=== PATIENT | male | born 1980 | race Caucasian/White ===

== ENCOUNTER → 2021-01-11 09:40 | Outpatient (BNVA) | payer OTHER, SELFPAY | PROVIDERS: Visit Provider Physician Assistant | DX: S93.401A Sprain of unspecified ligament of right ankle, initial encounter (principal); S63.501A Unspecified sprain of right wrist, initial encounter; W01.0XXA Fall on same level from slipping, tripping and stumbling without subsequent striking against object, initial encounter | CPT/HCPCS: 73110; 99203 ==

== ENCOUNTER → 2021-01-17 07:57 | Outpatient (BNVA) | payer OTHER, SELFPAY | PROVIDERS: Visit Provider Internal Medicine | DX: S63.501A Unspecified sprain of right wrist, initial encounter (principal); S93.401A Sprain of unspecified ligament of right ankle, initial encounter; X58.XXXA Exposure to other specified factors, initial encounter | CPT/HCPCS: 99213 ==

== ENCOUNTER → 2021-05-12 11:15 | Outpatient (BNVA) | payer OTHER, SELFPAY | PROVIDERS: Visit Provider Physician Assistant Medical | DX: S93.511A Sprain of interphalangeal joint of right great toe, initial encounter (principal); W11.XXXA Fall on and from ladder, initial encounter | CPT/HCPCS: 73630; 99203 ==

== ENCOUNTER → 2021-05-19 13:27 | Outpatient (BNVA) | payer OTHER, SELFPAY | PROVIDERS: Visit Provider Physician Assistant Medical | DX: S93.511A Sprain of interphalangeal joint of right great toe, initial encounter (principal); X58.XXXA Exposure to other specified factors, initial encounter | CPT/HCPCS: 99213 ==

== ENCOUNTER 2021-05-23 13:38 | Outpatient (REF) | payer BC, SELFPAY ==
--- NOTE | ~2021-05-23 | XR_ITS ---
EXAMINATION: XR CHEST CLINICAL INFORMATION: Cough. COMPARISON: Chest x-ray 09/12/2017 TECHNIQUE: 2 views of the chest were obtained. FINDINGS: No significant abnormality is noted involving the heart, lungs, mediastinum, bony thorax or soft tissues. There is a right Shunt catheter traversing the right anterior chest wall. XR/XR chest 2V IMPRESSION: Unremarkable chest examination. No change from the last exam.
== END 2021-05-23 13:39 | disposition home or self-care (01) ==
LOC: HO.HMGCX 13:38
PROVIDERS: Visit Provider Physician Assistant
DX: R05 Cough (principal); Z20.822 Contact with and (suspected) exposure to COVID-19
CPT/HCPCS: 71046; U0003; U0005

== ENCOUNTER 2021-07-01 06:27 | Outpatient (REF) | payer BC, SELFPAY ==
[2021-07-01 11:25] LABS: MANUAL DIFF FLAG NO
[2021-07-01 11:31] LABS: Appearance Urine CLEAR; Color Urine YELLOW; Glucose Urine UA NEG (NEG); Leukocyte Esterase Urine NEG (NEG); Nitrite Urine NEG (NEG); Specific Gravity - Urine 1.015 (1.005-1.025); Urine Blood NEG (NEG); Urine Ketones NEG (NEG); Urine Protein NEG (NEG-TRACE)
[2021-07-01 11:40] LABS: Basophils Percent Auto 0.4 % (0-2); Eosinophils Absolute Auto 0.2 X10*3/uL (0.0-0.4); Eosinophils Percent Auto 4.7 % (0-4); Hematocrit 36.5 % (42-52); Hemoglobin 11.9 g/dl (14.0-18.0); Imm Gran Abs Auto 0.01 X10*3/uL (0.00-0.03); Imm Gran Pct Auto 0.2 % (0.0-0.4); Lymphocytes Absolute Auto 1.4 X10*3/uL (1.2-4.9); Lymphocytes Percent Auto 27.6 % (20-40); Mean Corpuscular HGB Conc 32.6 g/dl (31.0-36.0); Mean Corpuscular Hemoglobin 29.2 pg (27.0-33.0); Mean Corpuscular Volume 89.7 fL (80-98); Mean Platelet Volume 9.9 fL (9.4-12.4); Monocytes Absolute Auto 0.4 X10*3/uL (0.1-1.2); Monocytes Percent Auto 6.8 % (2-11); Neutrophils Absolute Auto 3.1 X10*3/uL (2.0-8.3); Neutrophils Percent Auto 60.3 % (45-73); Platelet Count 352 X10*3/uL (160-400); Red Blood Count 4.07 X10*6/uL (4.60-5.80); Red Cell Distribution Width 13.6 % (11.0-16.0); White Blood Count 5.2 X10*3/uL (4.8-10.8)
[2021-07-01 12:02] LABS: Prostate Specific Antigen 0.66 ng/mL (<0.05-4.0)
[2021-07-01 12:07] LABS: Alanine Aminotransferase 14 U/L (0-40); Alkaline Phosphatase 61 U/L (39-117); Anion Gap 9 (12-20); Aspartate Amino Transferase 16 U/L (5-37); Bilirubin Total 0.4 mg/dL (0.0-1.0); Blood Urea Nitrogen 11 mg/dL (9-16); Calcium 8.6 mg/dL (8.4-10.2); Carbon Dioxide 24 mmol/L (22-29); Chloride 110 mmol/L (96-108); Cholesterol 176 mg/dL; Estimated Glomerular Filt Rate > 60; Glucose Fasting 97 mg/dL (60-99); HDL Cholesterol 46 mg/dL; LDL Cholesterol Calculated 118 mg/dl; Potassium 4.2 mmol/L (3.3-5.1); Sodium 139 mmol/L (135-145); Total Protein 6.6 g/dL (6.5-8.0); Triglycerides 64 mg/dL
== END 2021-07-01 06:28 | disposition home or self-care (01) ==
LOC: HO.HMGCLDS 06:27
PROVIDERS: PCP Internal Medicine; Visit Provider Internal Medicine
DX: Z00.01 Encounter for general adult medical examination with abnormal findings (principal); Z12.5 Encounter for screening for malignant neoplasm of prostate; J45.40 Moderate persistent asthma, uncomplicated; R35.0 Frequency of micturition; Z91.09 Other allergy status, other than to drugs and biological substances
CPT/HCPCS: 36415; 80053; 80061; 81003; 84153; 85025

== ENCOUNTER 2021-07-29 11:25 | Outpatient (REF) | payer BC, SELFPAY | END 2021-07-29 11:26 | disposition home or self-care (01) | LOC: HO.LNP 11:25 | PROVIDERS: Visit Provider Internal Medicine | DX: B35.3 Tinea pedis (principal); B35.1 Tinea unguium | CPT/HCPCS: 87101; 87107 ==

== ENCOUNTER 2021-09-24 10:35 | Outpatient (REF) | payer BC, SELFPAY ==
[2021-09-24 13:56] LABS: Alanine Aminotransferase 19 U/L (0-40); Albumin Level 4.3 g/dL (3.5-5.0); Alkaline Phosphatase 69 U/L (39-117); Aspartate Amino Transferase 14 U/L (5-37); Bilirubin Direct 0.2 mg/dL (0.0-0.5); Bilirubin Total 0.3 mg/dL (0.0-1.0); Total Protein 7.4 g/dL (6.5-8.0)
== END 2021-09-24 10:36 | disposition home or self-care (01) ==
LOC: HO.HMGCLDS 10:35
PROVIDERS: Visit Provider Internal Medicine
DX: B35.1 Tinea unguium (principal)
CPT/HCPCS: 36415; 80076

== ENCOUNTER 2021-11-21 06:47 | Outpatient (REF) | payer BC, SELFPAY ==
[2021-11-21 12:23] LABS: Alanine Aminotransferase 18 U/L (0-40); Albumin Level 4.2 g/dL (3.5-5.0); Alkaline Phosphatase 65 U/L (39-117); Aspartate Amino Transferase 16 U/L (5-37); Bilirubin Direct 0.2 mg/dL (0.0-0.5); Bilirubin Total 0.4 mg/dL (0.0-1.0)
== END 2021-11-21 06:48 | disposition home or self-care (01) ==
LOC: HO.HMGCLDS 06:47
PROVIDERS: Visit Provider Internal Medicine
DX: B35.3 Tinea pedis (principal)
CPT/HCPCS: 36415; 80076

== ENCOUNTER 2021-11-29 10:53 | Outpatient (REF) | payer BC, SELFPAY ==
[2021-11-29 13:36] LABS: Prostate Specific Antigen 0.58 ng/mL (<0.05-4.0)
== END 2021-11-29 10:54 | disposition home or self-care (01) ==
LOC: HO.LAB 10:53
PROVIDERS: PCP Internal Medicine
DX: Z12.5 Encounter for screening for malignant neoplasm of prostate (principal); R35.0 Frequency of micturition; R33.9 Retention of urine, unspecified
CPT/HCPCS: 36415; 51798; 84153

== ENCOUNTER 2022-01-26 14:02 | Outpatient (REF) | payer BC, SELFPAY ==
[2022-01-26 14:46] LABS: Influenza A PCR NEGATIVE (Negative); Influenza B PCR NEGATIVE (Negative); Resp Syncy Virus RNA Qual PCR NEGATIVE (Negative); SARS COV2 PCR INHOUSE NEGATIVE (Negative)
== END 2022-01-26 14:03 | disposition home or self-care (01) ==
LOC: HO.LNP 14:02
PROVIDERS: Family Medicine; Visit Provider Hospitalist
DX: Z20.822 Contact with and (suspected) exposure to COVID-19 (principal); R09.89 Other specified symptoms and signs involving the circulatory and respiratory systems
CPT/HCPCS: 0241U

== ENCOUNTER 2022-03-07 06:26 | Outpatient (REF) | payer BC, SELFPAY ==
[2022-03-07 11:42] LABS: MANUAL DIFF FLAG NO
[2022-03-07 12:00] LABS: Basophils Percent Auto 0.4 % (0-2); Eosinophils Absolute Auto 0.2 X10*3/uL (0.0-0.4); Eosinophils Percent Auto 2.4 % (0-4); Hematocrit 44.3 % (42.0-52.0); Hemoglobin 14.5 g/dl (14.0-18.0); Imm Gran Abs Auto 0.02 X10*3/uL (0.00-0.03); Imm Gran Pct Auto 0.3 % (0.0-0.4); Lymphocytes Absolute Auto 1.5 X10*3/uL (1.2-4.9); Mean Corpuscular HGB Conc 32.7 g/dl (31.0-36.0); Mean Corpuscular Hemoglobin 28.6 pg (27.0-33.0); Mean Corpuscular Volume 87.4 fL (80.0-98.0); Mean Platelet Volume 10.6 fL (9.4-12.4); Monocytes Absolute Auto 0.4 X10*3/uL (0.1-1.2); Monocytes Percent Auto 5.7 % (2-11); Neutrophils Absolute Auto 5.4 x10*3/uL (2.0-8.3); Neutrophils Percent Auto 71.2 % (45-73); Platelet Count 283 X10*3/uL (160-400); Red Blood Count 5.07 X10*6/uL (4.60-5.80); Red Cell Distribution Width 12.4 % (11.0-16.0); White Blood Count 7.6 X10*3/uL (4.8-10.8)
[2022-03-07 12:39] LABS: Alanine Aminotransferase 18 U/L (0-40); Albumin Level 4.1 g/dL (3.5-5.0); Alkaline Phosphatase 67 U/L (39-117); Anion Gap 13 (12-20); Aspartate Amino Transferase 13 U/L (5-37); Bilirubin Total 0.3 mg/dL (0.0-1.0); Blood Urea Nitrogen 19 mg/dL (9-16); Calcium 9.1 mg/dL (8.4-10.2); Carbon Dioxide 22 mmol/L (22-29); Chloride 111 mmol/L (96-108); Estimated Glomerular Filt Rate > 60; Glucose Random 128 mg/dL (60-115); Potassium 4.2 mmol/L (3.3-5.1); Sodium 142 mmol/L (135-145); Total Protein 6.8 g/dL (6.5-8.0)
[2022-03-09 04:11] LABS: LDL Cholesterol Direct 116 mg/dL (<100)
== END 2022-03-07 06:27 | disposition home or self-care (01) ==
LOC: HO.HMGCLDS 06:26
PROVIDERS: Visit Provider Internal Medicine
DX: B35.1 Tinea unguium (principal); F33.9 Major depressive disorder, recurrent, unspecified; J45.40 Moderate persistent asthma, uncomplicated; Z91.09 Other allergy status, other than to drugs and biological substances
CPT/HCPCS: 36415; 80053; 83721; 85025

== ENCOUNTER → 2022-03-09 08:35 | Outpatient (BNVA) | payer BC, SELFPAY | PROVIDERS: PCP Internal Medicine; Visit Provider Urology | DX: N39.43 Post-void dribbling (principal) | CPT/HCPCS: 51798 ==

== ENCOUNTER 2023-10-23 08:23 | Outpatient (AMB) | payer BC, SELFPAY ==
--- NOTE | 2023-10-23 08:25 | A.OFFPC_ITS ---
Vital Signs 3 10/23/23 08:30 Height 5 ft 7 in Weight 187 lb 3 oz BMI 29.3 BP 122/92 H Blood Pressure Location Lt brachial Position Sitting Pulse 91 Pulse Source Pulse Oximeter Pulse Oximetry (%) 96 Oxygen Delivery Method Room Air Intake Visit Reasons: Annual PE Allergies ENVIRONMENTAL Allergy (Mild, Uncoded 03/16/22 16:32) WHEEZING/HAYFEVER SYMPTOMS Medication List - Last Reconciled 10/23/23 by Bere Houston MD albuterol sulfate 90 mcg/actuation (ProAir HFA) 1 inh inhalation Q4-6H PRN Tobacco use date assessed: 10/23/23 Dental Screening Dental Screen Date: 10/23/23 Did you have a dental visit in the last 12 months?: Yes Did you have a dental problem in the last 6 months where you did not have access to dental care?: No Was dental information given to patient?: Patient has dentist HPI Annual PE 2 HPI0 Details Patient is a 43-year-old gentleman came in today for physical examination I see that his diastolic blood pressure continued to be elevated We talked about reducing salt intake, reducing caffeine, losing some weight and exercising regularly Patient says that he has started exercising. He is complaining of irritation at the tip of his penis for the past 2 weeks Patient says that he does not know if he has picked up something from public toilet On examination he has slight erythema at opening of urethra I have ordered STD labs for him I also see that he is depressed however he is not suicidal We will be booking appointment in 2 days as telemedicine visit and will discuss the labs and depression further Meanwhile our behavior health coordinator will reach out to patient He is overweight with BMI of 29.3. His asthma is stable he is no longer taking Symbicort [facility] Medical History Urinary retention Encounter for screening Family History Paternal Grandmother Diabetes Breast cancer Mother Hypertension Other Substance use disorder Social History Housing: House Patient Tobacco Use Status: Former Tobacco user (5 years ) Tobacco use type: Cigarette e-Cigarette/Vaping Use: Never Used service: No Current occupational status: employed Cognitive needs: No Hearing needs: No Vision needs: Yes Questionnaire PHQ-9 Over the last 2 weeks, how often have you been bothered by any of the following problems? 1. Little interest or pleasure in doing things: not at all 2. Feeling down, depressed, or hopeless: several days 3. Trouble falling or staying asleep, or sleeping too much: several days 4. Feeling tired or having little energy: several days 5. Poor appetite or overeating: several days 6. Feeling bad about yourself - or that you are a failure or have let yourself or your family down: several days 7. Trouble concentrating on things, such as reading the newspaper or watching television: not at all 8. Moving or speaking so slowly that other people could have noticed. Or the opposite - being so fidgety or restless that you have been moving around a lot more than usual: not at all 9. Thoughts that you would be better off or of hurting yourself in some way: several days Total score: 6 Depression Screening Interpretation: Negative Depression Screening Done: Yes 35080 - PHQ-9 Billing: Yes Source: Developed by Drs. Gold Lundberg, Ilene Dooley, Bashir Nelson and colleagues, with an educational lourdes from [employer]. Thrive Questionnaire Date Thrive assessed: 10/23/23 I am a: Patient What is your living situation today?: I have a steady place to live Within the past 12 months, did the food you bought not last and you didn't have the money to get more?: Never true Within the past 12 months, did you worry whether your food would run out before you got money to buy more?: Never true Do you have trouble paying for medicines?: No Do you have trouble getting transportation to medical appointments?: No Do you have trouble paying your heating and electricity bill?: No Do you have trouble taking care of your child, family member or friend?: No Do you have trouble with day-to-day activities such as bathing, preparing meals, shopping, managing finances, etc.?: No Are you currently unemployed and looking for a job?: No Are you interested in more education?: Yes Please select the resources that you would like help with: None Currently or been in a relationship where the following occur: no concerns reported THRIVE Score: 0 AUDIT C Alcohol Use Questionnaire (AUDIT-C) 1. How often do you have a drink containing alcohol?: Monthly or less 2. How many drinks containing alcohol do you have on a typical day when you are drinking?: 1 or 2 3. How often do you have six or more drinks on one occasion?: Never Total Score: 1 Score Reviewed/Action Taken: Yes RHETT-7 AMB Questionnaire RHETT-7 Date RHETT - 7 assessed: 10/23/23 Feeling nervous, anxious, or on edge: 0 = Not at all Not being able to stop or control worryin = Not at all Worrying too much about different things: 0 = Not at all Trouble relaxin = Not at all Being so restless that it is hard to sit still: 0 = Not at all Becoming easily annoyed or irritable: 1 = Several days Feeling afraid as if something awful might happen: 0 = Not at all Total RHETT-7 score (0-4 normal; 5-9 mild; 10-14 moderate; 15-21 severe): 1 Source: Developed by Drs. Gold Lundberg, Ilene Dooley, Bashir Nelson and colleagues, with an educational lourdes from [employer]. RHETT-7 Assessment Billing RHETT-7 Assessment Tool: RHETT-7 Assessment [id number] Review of Systems Const Denies chills, Denies fever(s) and Denies headache(s) Eyes Denies blurry vision ENT Denies headache(s), Denies nasal discharge, Denies nasal obstruction, Denies odynophagia and Denies sinus pain Card Denies chest pain at rest and Denies chest pain with activity Resp Denies cough and Denies hemoptysis GI Denies diarrhea, Denies odynophagia, Denies vomiting and Denies hematemesis Reports as per HPI Musc Denies abnormal gait Skin/Breast Reports as per HPI Neuro Denies Neuro-related abnormal movements, Denies Abnormal speech present, Denies abnormal gait, Denies headache(s) and Denies Sensory deficit (Neuro) Psych Denies mood swings and Denies paranoia Endo Reports as per HPI Brandin/Lymph Reports as per HPI Aller/Immun Reports as per HPI Physical exam (Primary Care) Vital Signs: Last Vital Signs Pulse 91 10/23/23 08:30 BP 122/92 H 10/23/23 08:30 Pulse Ox 96 10/23/23 08:30 Oxygen Delivery Method Room Air 10/23/23 08:30 BMI result Body Mass Index 29.3 Tobacco/Smoking Status: Tobacco use Status Tobacco use date assessed 10/23/23 10/23/23 08:26 Patient Tobacco Use Status Former Tobacco user (5 years 10/23/23 08:26 ) Tobacco use type Cigarette 10/23/23 08:26 e-Cigarette/Vaping Use Never Used 10/23/23 08:26 PHQ-9: PHQ-9 Score PHQ-9: Total score 6 10/23/23 09:47 Depression Screening Interpretation: Negative Thrive Assessment: Date of Thrive Assessment Date Thrive assessed 10/23/23 10/23/23 08:41 Currently or been in a relationship where the following occur: no concerns reported Const General: cooperative, comfortable and no acute distress Orientation/consciousness: patient oriented x3 HENMT Head: Yes normocephalic and Yes atraumatic Eyes General: appearance normal, both eyes and all related structures Pupils: Equal, round and reactive pupils present EOM: EOMs intact bilaterally Neck Neck: Yes supple and No lymphadenopathy Thyroid: Thyroid normal Lymphatic: no lymphadenopathy noted Resp Effort & Inspection: normal respiratory effort and able to speak in complete sentences Auscultation: clear to auscultation bilaterally Cardio Heart sounds: S1 normal heart sound present and S2 normal heart sound present GI Palpation (GI): Soft to palpation and nontender Auscultation: normal bowel sounds General: Yes no CVA tenderness Male genitals images: 2 1. Positive erythema at the opening of urethral , without any discharge, patient is not circumcised Back/Spine/Pelvis Back: no CVA tenderness Skin General skin exam: elasticity normal and turgor normal Neuro General: patient oriented x3 and gait normal Cranial nerves: Yes Equal, round and reactive pupils present Speech: No Abnormal speech present Sensory Exam: No Sensory deficit (Neuro) Coordination: tandem gait normal and Romberg test negative Extrem General: Yes normal exam except as noted and No edema Assessment and Plan Assessment & Plan (1) Encounter for general adult medical examination with abnormal findings: Code(s): Z00.01 - Encounter for general adult medical examination with abnormal findings (2) Asthma, intermittent: Code(s): J45.20 - Mild intermittent asthma, uncomplicated Qualifiers: Asthma complication type: uncomplicated Asthma severity: mild Qualified Code(s): J45.20 - Mild intermittent asthma, uncomplicated (3) Major depression, recurrent: Code(s): F33.9 - Major depressive disorder, recurrent, unspecified Qualifiers: Active/Remission status: currently active Major depression episode severity: moderate Qualified Code(s): F33.1 - Major depressive disorder, recurrent, moderate (4) Overweight (BMI 25.0-29.9): Code(s): E66.3 - Overweight (5) Penile rash: Code(s): R21 - Rash and other nonspecific skin eruption Plan Patient is a 43-year-old gentleman came in today for physical examination I see that his diastolic blood pressure continued to be elevated We talked about reducing salt intake, reducing caffeine, losing some weight and exercising regularly Patient says that he has started exercising. He is complaining of irritation at the tip of his penis for the past 2 weeks Patient says that he does not know if he has picked up something from public toilet On examination he has slight erythema at opening of urethra I have ordered STD labs for him I also see that he is depressed however he is not suicidal We will be booking appointment in 2 days as telemedicine visit and will discuss the labs and depression further Meanwhile our behavior health coordinator will reach out to patient He is overweight with BMI of 29.3. His asthma is stable he is no longer taking Symbicort Orders: Orders 2 Herpes Simplex Virus Ab IgG Today F33.9 - Major depressive disorder, recurrent, unspecified, J45.20 - Mild intermittent asthma, uncomplicated, R21 - Rash and other nonspecific skin eruption, Z00.01 - Encounter for general adult medical examination with abnormal findings Lipid Panel Today E66.3 - Overweight, Z00.01 - Encounter for general adult medical examination with abnormal findings HIV Ab/Ag Today F33.9 - Major depressive disorder, recurrent, unspecified, J45.20 - Mild intermittent asthma, uncomplicated, R21 - Rash and other nonspecific skin eruption, Z00.01 - Encounter for general adult medical examination with abnormal findings Syphilis Screen Today F33.9 - Major depressive disorder, recurrent, unspecified, J45.20 - Mild intermittent asthma, uncomplicated, R21 - Rash and other nonspecific skin eruption, Z00.01 - Encounter for general adult medical examination with abnormal findings Hepatitis C Antibody Today F33.9 - Major depressive disorder, recurrent, unspecified, J45.20 - Mild intermittent asthma, uncomplicated, R21 - Rash and other nonspecific skin eruption, Z00.01 - Encounter for general adult medical examination with abnormal findings Comprehensive Met. Panel Today F33.9 - Major depressive disorder, recurrent, unspecified, J45.20 - Mild intermittent asthma, uncomplicated, R21 - Rash and other nonspecific skin eruption, Z00.01 - Encounter for general adult medical examination with abnormal findings Complete Blood Count Auto Diff Today E66.3 - Overweight, Z00.01 - Encounter for general adult medical examination with abnormal findings Coding Level of Care Code Est Pt Prev Care 40-64y(68287) Diagnoses Encounter for general adult medical examination with abnormal findings Z00.01 Mild intermittent asthma without complication J45.20 Asthma complication type: uncomplicated Asthma severity: mild Moderate episode of recurrent major depressive disorder F33.1 Active/Remission status: currently active Major depression episode severity: moderate Overweight (BMI 25.0-29.9) E66.3 Penile rash R21 Additional Codes RHETT-7 Assessment Billing - RHETT-7 Assessment Tool: RHETT-7 Assessment [id number] ([id number])
[2023-10-23 08:30] VITALS: BP 122/92; PULSE 91; O2SAT 96; BMI 29.3
== END 2023-10-23 08:52 | disposition home or self-care (01) ==
PROVIDERS: Visit Provider Internal Medicine
DX: Z00.01 Encounter for general adult medical examination with abnormal findings (principal); J45.20 Mild intermittent asthma, uncomplicated; F33.1 Major depressive disorder, recurrent, moderate; E66.3 Overweight; R21 Rash and other nonspecific skin eruption
CPT/HCPCS: 99396

== ENCOUNTER 2023-10-23 08:56 | Outpatient (REF) | payer BC, SELFPAY ==
[2023-10-23 11:16] LABS: MANUAL DIFF FLAG NO
[2023-10-23 11:24] LABS: Basophils Percent Auto 0.4 % (0-2); Eosinophils Absolute Auto 0.1 X10*3/uL (0.0-0.4); Eosinophils Percent Auto 2.7 % (0-4); Hematocrit 46.9 % (42.0-52.0); Hemoglobin 15.9 g/dl (14.0-18.0); Imm Gran Abs Auto 0.01 X10*3/uL (0.00-0.03); Imm Gran Pct Auto 0.2 % (0.0-0.4); Lymphocytes Absolute Auto 1.3 X10*3/uL (1.2-4.9); Lymphocytes Percent Auto 24.7 % (20-40); Mean Corpuscular HGB Conc 33.9 g/dl (31.0-36.0); Mean Corpuscular Hemoglobin 29.4 pg (27.0-33.0); Mean Corpuscular Volume 86.7 fL (80.0-98.0); Mean Platelet Volume 10.4 fL (9.4-12.4); Monocytes Absolute Auto 0.3 X10*3/uL (0.1-1.2); Monocytes Percent Auto 5.9 % (2-11); Neutrophils Absolute Auto 3.5 x10*3/uL (2.0-8.3); Neutrophils Percent Auto 66.1 % (45-73); Platelet Count 266 X10*3/uL (160-400); Red Blood Count 5.41 X10*6/uL (4.60-5.80); Red Cell Distribution Width 12.8 % (11.0-16.0); White Blood Count 5.3 X10*3/uL (4.8-10.8)
[2023-10-23 11:37] LABS: Alanine Aminotransferase 24 U/L (0-40); Albumin Level 4.3 g/dL (3.5-5.0); Alkaline Phosphatase 76 U/L (39-117); Anion Gap 12 (12-20); Aspartate Amino Transferase 19 U/L (5-37); Bilirubin Total 0.5 mg/dL (0.0-1.0); Blood Urea Nitrogen 16 mg/dL (9-16); Calcium 9.2 mg/dL (8.4-10.2); Carbon Dioxide 26 mmol/L (22-29); Chloride 109 mmol/L (96-108); Cholesterol 203 mg/dL (<200); Estimated Glomerular Filt Rate > 60; Glucose Random 97 mg/dL (60-115); HDL Cholesterol 53 mg/dL (>40); LDL Cholesterol Calculated 127 mg/dL (<100); Potassium 4.2 mmol/L (3.3-5.1); Sodium 143 mmol/L (135-145); Total Protein 7.5 g/dL (6.5-8.0); Triglycerides 119 mg/dL (<150)
[2023-10-23 12:00] LABS: Syphilis Screen Nonreactive (Nonreactive)
[2023-10-23 12:02] LABS: HIV AB/AG Nonreactive (Nonreactive); HIV Num 1 0.05 S/CO (0.00-0.99); ~HepC Num1 0.09 S/CO (0.00-0.79); ~Hepatitis C Antibody Nonreactive (Nonreactive)
[2023-10-24 06:14] LABS: Herpes Simplex Type 2 IgG <0.90 index
== END 2023-10-23 08:57 | disposition home or self-care (01) ==
LOC: HO.HMGCLDS 08:56
PROVIDERS: PCP Internal Medicine; Visit Provider Internal Medicine
DX: Z00.01 Encounter for general adult medical examination with abnormal findings (principal); Z11.4 Encounter for screening for human immunodeficiency virus [HIV]; R21 Rash and other nonspecific skin eruption; F33.9 Major depressive disorder, recurrent, unspecified; E66.3 Overweight; J45.20 Mild intermittent asthma, uncomplicated
CPT/HCPCS: 36415; 80053; 80061; 85025; 86695; 86696; 86780; 86803; 87389

== ENCOUNTER 2023-10-24 17:09 | Outpatient (REF) | payer BC, SELFPAY ==
[2023-10-24 17:44] LABS: Appearance Urine Clear; Color Urine Yellow; Glucose Urine UA Negative (Negative); Leukocyte Esterase Urine Negative (Negative); Nitrite Urine Negative (Negative); PH 6.5 (5.0-9.0); Specific Gravity - Urine >= 1.030 (1.005-1.025); Urine Blood Negative (Negative); Urine Ketones Negative (Negative); Urine Protein Negative (Neg-Trace)
== END 2023-10-24 17:10 | disposition home or self-care (01) ==
LOC: HO.LAB 17:09
PROVIDERS: PCP Internal Medicine; Visit Provider Internal Medicine
DX: R30.0 Dysuria (principal)
CPT/HCPCS: 81003

== ENCOUNTER 2023-11-01 08:28 | Outpatient (AMB) | payer BC, SELFPAY ==
--- NOTE | 2023-11-01 08:49 | MHC.PC.OV ---
Intake Visit Reasons: Discuss Results~ Allergies ENVIRONMENTAL Allergy (Mild, Uncoded 03/16/22 16:32) WHEEZING/HAYFEVER SYMPTOMS Medication List - Last Reconciled 11/01/23 by Bere Houston MD albuterol sulfate 90 mcg/actuation (ProAir HFA) 1 inh inhalation Q4-6H PRN Tobacco use date assessed: 11/01/23 Dental Screening Dental Screen Date: 11/01/23 Did you have a dental visit in the last 12 months?: No Did you have a dental problem in the last 6 months where you did not have access to dental care?: No Was dental information given to patient?: Patient has dentist HPI Discuss Results~ HPI Details Patient is HSV 1 + Significance of this report discussed with the patient, he continued to have irritation at the tip of his penis I have sent mild steroid cream that he is to use at night and we will see how he is doing in 1 week, if not better than patient need to see urologist As per his depression is concerned patient says that 1 and half year ago his child moved out of state and he just started feeling very sad He is not suicidal, he is going to some support groups which is helping him Patient says that he is not ready to take medication however if he felt his symptoms are not improving he will reach out to us. [facility] Medical History Urinary retention Encounter for screening Family History Paternal Grandmother Diabetes Breast cancer Mother Hypertension Other Substance use disorder Social History Housing: House Patient Tobacco Use Status: Former Tobacco user (5 years ) Tobacco use type: Cigarette e-Cigarette/Vaping Use: Never Used service: No Current occupational status: employed Cognitive needs: No Hearing needs: No Vision needs: Yes Questionnaire Thrive Questionnaire Date Thrive assessed: 10/23/23 AUDIT C Alcohol Use Questionnaire (AUDIT-C) 1. How often do you have a drink containing alcohol?: Monthly or less 2. How many drinks containing alcohol do you have on a typical day when you are drinking?: 1 or 2 3. How often do you have six or more drinks on one occasion?: Never Total Score: 1 Score Reviewed/Action Taken: Yes RHETT-7 AMB Questionnaire RHETT-7 Date RHETT - 7 assessed: 10/23/23 Source: Developed by Drs. Gold Lundberg, Ilene Dooley, Bashir Nelson and colleagues, with an educational lourdes from [employer]. Review of Systems Const Denies chills and Denies fever(s) ENT Denies epistaxis and Denies nasal discharge Card Denies chest pain Resp Denies chest congestion, Denies cough and Denies hemoptysis GI Denies diarrhea and Denies nausea Skin/Breast Denies rash Neuro Reports no additional complaints Psych Reports no additional complaints Endo Reports no additional complaints Physical exam (Primary Care) Tobacco/Smoking Status: Tobacco use Status Tobacco use date assessed 11/01/23 11/01/23 08:49 Patient Tobacco Use Status Former Tobacco user (5 years 11/01/23 08:49 ) Tobacco use type Cigarette 11/01/23 08:49 e-Cigarette/Vaping Use Never Used 11/01/23 08:49 Thrive Assessment: Date of Thrive Assessment Date Thrive assessed 10/23/23 11/01/23 08:49 Telehealth Telehealth Location of provider rendering services: practice address Location of patient: address on file Patient Identification confirmed using: Name, : Yes Telehealth method: video Patient verbally consented to treatment: Yes Patient verbally consented to billing insurance company: Yes Patient informed of any privacy concerns related to visit: Yes Minutes spent on Phone/Video with Pt.: 13 Results Reviewed Results Reviewed: Laboratory Tests 10/23/23 09:02 HSV I IgG Ab 22.00 H Assessment and Plan Assessment & Plan (1) Penile rash: Code(s): R21 - Rash and other nonspecific skin eruption (2) Herpes simplex type 1 antibody positive: Code(s): B00.9 - Herpesviral infection, unspecified (3) Depression, major, severe recurrence: Code(s): F33.2 - Major depressive disorder, recurrent severe without psychotic features Qualifiers: Psychotic features: without psychotic features Qualified Code(s): F33.2 - Major depressive disorder, recurrent severe without psychotic features Plan Patient is HSV 1 + Significance of this report discussed with the patient, he continued to have irritation at the tip of his penis I have sent mild steroid cream that he is to use at night and we will see how he is doing in 1 week, if not better than patient need to see urologist As per his depression is concerned patient says that 1 and half year ago his child moved out of state and he just started feeling very sad He is not suicidal, he is going to some support groups which is helping him Patient says that he is not ready to take medication however if he felt his symptoms are not improving he will reach out to us. Medications: New hydrocortisone 2.5% 1 appl topical BEDTIME PRN 30 grams 0RF skin irritation 14 days Coding Level of Care Code Tele Est Pt Level 3 (49246) Diagnoses Penile rash R21 Herpes simplex type 1 antibody positive B00.9 Severe episode of recurrent major depressive disorder, without psychotic features F33.2 Psychotic features: without psychotic features
== END 2023-11-01 12:35 | disposition home or self-care (01) ==
LOC: HO.HMGC 08:28
PROVIDERS: PCP Internal Medicine; Visit Provider Internal Medicine
DX: R21 Rash and other nonspecific skin eruption (principal); B00.9 Herpesviral infection, unspecified; F33.2 Major depressive disorder, recurrent severe without psychotic features
CPT/HCPCS: 99213

== ENCOUNTER 2023-12-24 10:41 | Outpatient (AMB) | payer BC, SELFPAY ==
[2023-12-24 12:01] VITALS: BP 120/90; PULSE 78; TEMP 36.5; O2SAT 97; BMI 29.6
--- NOTE | 2023-12-24 12:01 | AM.OFFWIN_ITS ---
Intake Vital Signs 12/24/23 12:01 Height 5 ft 7 in Weight 189 lb BMI 29.6 BP 120/90 H Blood Pressure Location Lt brachial Position Sitting Pulse 78 Pulse Source Pulse Oximeter Temp 97.7 F Temp Source Temporal Artery Scan Pulse Oximetry (%) 97 Oxygen Delivery Method Room Air Intake Visit Reasons: Right Eye Irritation (lobby) Intake Note: pt is here today for rt eye irritation started 2 days ago Patient Tobacco Use Status: Former Tobacco user Allergies ENVIRONMENTAL Allergy (Mild, Uncoded 03/16/22 16:32) WHEEZING/HAYFEVER SYMPTOMS Do you need a note to return to daycare/school/sports/work: No HPI HPI Comments History of Present Illness Details 43 y/o male patient who presents to [facility] with c/o right eye redness and discomfort x 2 days now. Denies blurry vision. [facility]LY [facility] Medical History Urinary retention Encounter for screening Family History Paternal Grandmother Diabetes Breast cancer Mother Hypertension Other Substance use disorder Social History Housing: House Patient Tobacco Use Status: Former Tobacco user Tobacco use type: Cigarette e-Cigarette/Vaping Use: Never Used service: No Current occupational status: employed Cognitive needs: No Hearing needs: No Vision needs: Yes Review of Systems Const All systems reviewed & are unremarkable except as noted in HPI and below Physical Exam Vital Signs: Last Vital Signs Temp 97.7 F 12/24/23 12:01 Pulse 78 12/24/23 12:01 BP 120/90 H 12/24/23 12:01 Pulse Ox 97 12/24/23 12:01 Oxygen Delivery Method Room Air 12/24/23 12:01 BMI result Body Mass Index 29.6 Const General: comfortable and no acute distress Orientation/consciousness: patient oriented x3 HEENT Head: Yes normocephalic Ears: external ears normal and TM abnormal with fluid behind the TM bilateral; not bulging, not with effusion, not erythematous and not perforated General nose exam: Abnormal mucous membranes and turbinates present pale Face and sinus: Yes sinuses nontender Mouth: moist mucous membranes Throat: Yes posterior oropharynx normal, Yes tonsils normal and Yes uvula midline Eyes Conjunctivae: conjunctival abnormal right conjunctival injection diffuse; without discharge Corneas: corneas normal Pupils: Equal, round and reactive pupils present EOM: EOMs intact bilaterally Direct Ophthalmoscopy: normal light reflex Resp Auscultation: clear to auscultation bilaterally Neuro General: patient oriented x3 Cranial nerves: Yes Equal, round and reactive pupils present Assessment & Plan Assessment & Plan (1) Bacterial conjunctivitis: Code(s): H10.9 - Unspecified conjunctivitis Plan: - Maintain a good eye hygiene - Wash hand with soap and water. Medications: New ciprofloxacin HCl 0.3% put 1-2 drps in affected eye(s) every 2hr up to 8 times/day x2days; then 4 times/day x5days ophthalmic (eye) 5 mL 0RF right eye redness H10.9 - Unspecified conjunctivitis Coding Level of Care Code Est Pt Level 3 (92801) Diagnoses Bacterial conjunctivitis H10.9 Time Spent (min) 15
== END 2023-12-24 12:26 | disposition home or self-care (01) ==
PROVIDERS: PCP Internal Medicine; Visit Provider Nurse Practitioner Family
DX: H10.9 Unspecified conjunctivitis (principal)
CPT/HCPCS: 99213

== ENCOUNTER 2024-04-18 08:01 | Outpatient (AMB) | payer OTHER, SELFPAY ==
[2024-04-18 08:02] VITALS: BP 126/92; PULSE 87; O2SAT 97; BMI 29.3
--- NOTE | 2024-04-18 08:02 | MHC.PC.OV ---
Vital Signs 04/18/24 08:02 Height 5 ft 7 in Weight 187 lb BMI 29.3 BP 126/92 H Blood Pressure Location Rt brachial Position Sitting Pulse 87 Pulse Source Pulse Oximeter Pulse Oximetry (%) 97 Oxygen Delivery Method Room Air Intake Visit Reasons: 6M F/U Allergies ENVIRONMENTAL Allergy (Mild, Uncoded 03/16/22 16:32) WHEEZING/HAYFEVER SYMPTOMS Medication List - Last Reconciled 04/18/24 by Bere Houston MD albuterol sulfate 90 mcg/actuation (ProAir HFA) 1 inh inhalation Q4-6H PRN Tobacco use date assessed: 04/18/24 Dental Screening Dental Screen Date: 04/18/24 Did you have a dental visit in the last 12 months?: No Did you have a dental problem in the last 6 months where you did not have access to dental care?: No Was dental information given to patient?: Patient has dentist HPI 6M F/U HPI Details Emotionally patient is doing better He was feeling depressed when his daughter moved to a different state He is still feeling emotional talking about her but improving gradually does not want to take any medication Breathing is stable hardly ever use albuterol inhaler Patient has started running and light work out as well 2 times a week, and will be increasing more frequent Blood pressure is slightly elevated, diastolic being 92 Once again patient was instructed to start monitoring blood pressure at home keep a log and bring it along next visit in October for physical exam He is also overweight and is trying to lose weight. Lab order placed to be done fasting before next visit in October. [facility] Medical History Urinary retention Encounter for screening Family History Paternal Grandmother Diabetes Breast cancer Mother Hypertension Other Substance use disorder Social History Housing: House Patient Tobacco Use Status: Former Tobacco user Tobacco use type: Cigarette e-Cigarette/Vaping Use: Never Used service: No Current occupational status: employed Cognitive needs: No Hearing needs: No Vision needs: Yes Questionnaire PHQ-9 Over the last 2 weeks, how often have you been bothered by any of the following problems? 1. Little interest or pleasure in doing things: not at all 2. Feeling down, depressed, or hopeless: not at all 3. Trouble falling or staying asleep, or sleeping too much: not at all 4. Feeling tired or having little energy: several days 5. Poor appetite or overeating: not at all 6. Feeling bad about yourself - or that you are a failure or have let yourself or your family down: not at all 7. Trouble concentrating on things, such as reading the newspaper or watching television: not at all 8. Moving or speaking so slowly that other people could have noticed. Or the opposite - being so fidgety or restless that you have been moving around a lot more than usual: not at all 9. Thoughts that you would be better off or of hurting yourself in some way: not at all Total score: 1 Depression Screening Interpretation: Negative Depression Screening Done: Yes 32125 - PHQ-9 Billing: Yes Source: Developed by Drs. Gold Lundberg, Ilene Dooley, Bashir Nelson and colleagues, with an educational lourdes from [employer]. Thrive Questionnaire Date Thrive assessed: 04/18/24 I am a: Patient What is your living situation today?: I have a steady place to live Within the past 12 months, did the food you bought not last and you didn't have the money to get more?: Never true Within the past 12 months, did you worry whether your food would run out before you got money to buy more?: Never true Do you have trouble paying for medicines?: No Do you have trouble getting transportation to medical appointments?: No Do you have trouble paying your heating and electricity bill?: No Do you have trouble taking care of your child, family member or friend?: No Do you have trouble with day-to-day activities such as bathing, preparing meals, shopping, managing finances, etc.?: No Are you currently unemployed and looking for a job?: No Are you interested in more education?: No Please select the resources that you would like help with: Housing/Nursing Home Currently or been in a relationship where the following occur: No concerns reported THRIVE Score: 0 AUDIT C Alcohol Use Questionnaire (AUDIT-C) 1. How often do you have a drink containing alcohol?: 2-4 times a month 2. How many drinks containing alcohol do you have on a typical day when you are drinking?: 3 or 4 3. How often do you have six or more drinks on one occasion?: Never Total Score: 3 Score Reviewed/Action Taken: Yes RHETT-7 AMB Questionnaire RHETT-7 Date RHETT - 7 assessed: 04/18/24 Feeling nervous, anxious, or on edge: 0 = Not at all Not being able to stop or control worryin = Not at all Worrying too much about different things: 0 = Not at all Trouble relaxin = Not at all Being so restless that it is hard to sit still: 0 = Not at all Becoming easily annoyed or irritable: 1 = Several days Feeling afraid as if something awful might happen: 0 = Not at all Total RHETT-7 score (0-4 normal; 5-9 mild; 10-14 moderate; 15-21 severe): 1 Source: Developed by Drs. Gold Lundberg, Ilene Dooley, Bashir Nelson and colleagues, with an educational lourdes from [employer]. RHETT-7 Assessment Billing RHETT-7 Assessment Tool: RHETT-7 Assessment 34155 Review of Systems Const Denies chills and Denies fever(s) ENT Denies epistaxis and Denies nasal discharge Card Denies chest pain Resp Denies chest congestion, Denies cough and Denies hemoptysis GI Denies diarrhea and Denies nausea Skin/Breast Denies rash Neuro Reports no additional complaints Psych Reports no additional complaints Endo Reports no additional complaints Physical exam (Primary Care) Vital Signs: Last Vital Signs Pulse 87 04/18/24 08:02 BP 126/92 H 04/18/24 08:02 Pulse Ox 97 04/18/24 08:02 Oxygen Delivery Method Room Air 04/18/24 08:02 BMI result Body Mass Index 29.3 Tobacco/Smoking Status: Tobacco use Status Tobacco use date assessed 04/18/24 04/18/24 08:06 Patient Tobacco Use Status Former Tobacco user 04/18/24 08:06 Tobacco use type Cigarette 04/18/24 08:06 e-Cigarette/Vaping Use Never Used 04/18/24 08:06 PHQ-9: PHQ-9 Score PHQ-9: Total score 1 04/18/24 08:21 Depression Screening Interpretation: Negative Thrive Assessment: Date of Thrive Assessment Date Thrive assessed 04/18/24 04/18/24 08:06 Currently or been in a relationship where the following occur: No concerns reported Const General: cooperative, comfortable and no acute distress Orientation/consciousness: patient oriented x3 HENMT Head: Yes normocephalic Eyes General: appearance normal, both eyes and all related structures Neck Neck: Yes supple Resp Effort & Inspection: normal respiratory effort, no cough and no stridor Cardio Rhythm: regular rhythm Heart sounds: S1 normal heart sound present and S2 normal heart sound present Skin General skin exam: turgor normal Neuro General: patient oriented x3, tone normal and moves all extremities Extrem Right lower extremity: no edema Left lower extremity: no edema Assessment and Plan Assessment & Plan (1) Depression, major, severe recurrence: Code(s): F33.2 - Major depressive disorder, recurrent severe without psychotic features Qualifiers: Psychotic features: without psychotic features Qualified Code(s): F33.2 - Major depressive disorder, recurrent severe without psychotic features (2) Diastolic hypertension: Code(s): I10 - Essential (primary) hypertension (3) Overweight (BMI 25.0-29.9): Code(s): E66.3 - Overweight Plan Emotionally patient is doing better He was feeling depressed when his daughter moved to a different state He is still feeling emotional talking about her but improving gradually does not want to take any medication Breathing is stable hardly ever use albuterol inhaler Patient has started running and light work out as well 2 times a week, and will be increasing more frequent Blood pressure is slightly elevated, diastolic being 92 Once again patient was instructed to start monitoring blood pressure at home keep a log and bring it along next visit in October for physical exam He is also overweight and is trying to lose weight. Lab order placed to be done fasting before next visit in October. Orders: Orders Complete Blood Count Auto Diff Today E66.3 - Overweight, F33.2 - Major depressive disorder, recurrent severe without psychotic features, I10 - Essential (primary) hypertension Lipid Panel Today E66.3 - Overweight, F33.2 - Major depressive disorder, recurrent severe without psychotic features, I10 - Essential (primary) hypertension Comprehensive Krebs. Panel Fast Today E66.3 - Overweight, F33.2 - Major depressive disorder, recurrent severe without psychotic features, I10 - Essential (primary) hypertension Coding Level of Care Code Est Pt Level 3 (48849) Diagnoses Severe episode of recurrent major depressive disorder, without psychotic features F33.2 Psychotic features: without psychotic features Diastolic hypertension I10 Overweight (BMI 25.0-29.9) E66.3 Additional Codes RHETT-7 Assessment Billing - RHETT-7 Assessment Tool: RHETT-7 Assessment 70200 ([id number])
== END 2024-04-18 08:38 | disposition home or self-care (01) ==
PROVIDERS: PCP Internal Medicine; Visit Provider Internal Medicine
DX: F33.2 Major depressive disorder, recurrent severe without psychotic features (principal); I10 Essential (primary) hypertension; E66.3 Overweight
CPT/HCPCS: 96127; 99213

== ENCOUNTER 2024-10-28 15:07 | Outpatient (AMB) | payer OTHER, SELFPAY ==
[2024-10-28 15:10] VITALS: BP 112/76; PULSE 86; O2SAT 98; BMI 29.9
--- NOTE | 2024-10-28 15:10 | A.OFFPC_ITS ---
Vital Signs 10/28/24 15:10 Height 5 ft 7 in Weight 191 lb 2 oz BMI 29.9 BP 112/76 Blood Pressure Location Rt brachial Position Sitting Pulse 86 Pulse Source Pulse Oximeter Pulse Oximetry (%) 98 Oxygen Delivery Method Room Air Intake Visit Reasons: Annual PE Allergies ENVIRONMENTAL Allergy (Mild, Uncoded 03/16/22 16:32) WHEEZING/HAYFEVER SYMPTOMS Medication List - Last Reconciled 10/28/24 by Bere Houston MD albuterol sulfate 90 mcg/actuation (ProAir HFA) 1 inh inhalation Q4-6H PRN Tobacco use date assessed: 10/28/24 Dental Screening Dental Screen Date: 10/28/24 Did you have a dental visit in the last 12 months?: Yes Did you have a dental problem in the last 6 months where you did not have access to dental care?: No Was dental information given to patient?: Patient has dentist HPI Annual PE HPI Details - The patient is a 44-year-old male pres enting for a physical examination and routine follow-up. - He reports skin irritation due to dryn ess, which is improving with the use of a humidifier; he has been advised on moisturizing techniques. - He acknowledges being slightly overwei ght, expressing efforts to rectify this through dietary changes and better coordination with family for healthier food choices. - No medications are being taken current ly, and there are no active medical complaints. - Previous laboratory results from last year were reviewed and were normal. Health Maintenance - Completion of influenza vaccination in July, as confirmed in records. - Completed COVID-19 vaccination series. - Discussed weight management and dietar y changes, emphasizing the reduction of carbohydrate-rich and high-caloric intake. - Advice on using olive oil for skin caleb sturizing after showers. Review of Systems - General: No fever no chills - Neurological: No headaches no dizzin ess - Ear nose throat: No sore throat no hearing difficulty no ear pain - Cardiovascular: No syncope, no chest pain, no palpitations - Gastrointestinal: No nausea vomiting or diarrhea - Endocrine: No polyuria polydipsia no heat intolerance - Genitourinary: No dysuria - Skin: No new complaints Physical Exam General: Cooperative, healthy appearing, comfortable, no acute distress Orientation: Patient oriented x3 Limitations: None Head: Normal to inspection Ears: Within normal limit visually Nose: Normal external nose present Face and sinus: Normal facial exam Eyes: Appearance normal, extraocular movement intact pupils reactive Neck: Normal visual inspection and supple Respiratory: Normal respiratory effort and able to speak in complete sentences. Clear to auscultation, no stridor Cardiovascular: S1 and S2 GI: Normal to inspection. Soft to palpation and nontender Skin: Turgor normal, no acute findings, some irritation due to dryness Neuro: Patient oriented x3, motor sensory intact, balance intact, tandem pass Extremities: Normal to inspection [facility] Medical History Urinary retention Encounter for screening Family History Paternal Grandmother Diabetes Breast cancer Mother Hypertension Other Substance use disorder Social History Housing: House Patient Tobacco Use Status: Former Tobacco user Tobacco use type: Cigarette e-Cigarette/Vaping Use: Never Used service: No Current occupational status: employed Cognitive needs: No Hearing needs: No Vision needs: Yes Questionnaire PHQ-9 Over the last 2 weeks, how often have you been bothered by any of the following problems? 1. Little interest or pleasure in doing things: not at all 2. Feeling down, depressed, or hopeless: not at all 3. Trouble falling or staying asleep, or sleeping too much: not at all 4. Feeling tired or having little energy: not at all 5. Poor appetite or overeating: not at all 6. Feeling bad about yourself - or that you are a failure or have let yourself or your family down: not at all 7. Trouble concentrating on things, such as reading the newspaper or watching television: not at all 8. Moving or speaking so slowly that other people could have noticed. Or the opposite - being so fidgety or restless that you have been moving around a lot more than usual: not at all 9. Thoughts that you would be better off or of hurting yourself in some way: not at all Total score: 0 Depression Screening Interpretation: Negative Depression Screening Done: Yes 10660 - PHQ-9 Billing: Yes Source: Developed by Drs. Gold Lundberg, Ilene Dooely, Bashir Nelson and colleagues, with an educational lourdes from [employer]. Thrive Questionnaire Date Thrive assessed: 10/28/24 I am a: Patient What is your living situation today?: I have a steady place to live Within the past 12 months, did the food you bought not last and you didn't have the money to get more?: Never true Within the past 12 months, did you worry whether your food would run out before you got money to buy more?: Never true Do you have trouble paying for medicines?: No Do you have trouble getting transportation to medical appointments?: No Do you have trouble paying your heating and electricity bill?: No Do you have trouble taking care of your child, family member or friend?: No Do you have trouble with day-to-day activities such as bathing, preparing meals, shopping, managing finances, etc.?: No Are you currently unemployed and looking for a job?: No Are you interested in more education?: No Please select the resources that you would like help with: None Currently or been in a relationship where the following occur: No concerns reported THRIVE Score: 0 AUDIT C Alcohol Use Questionnaire (AUDIT-C) 1. How often do you have a drink containing alcohol?: 2-4 times a month 2. How many drinks containing alcohol do you have on a typical day when you are drinking?: 3 or 4 3. How often do you have six or more drinks on one occasion?: Never Total Score: 3 Score Reviewed/Action Taken: Yes RHETT-7 AMB Questionnaire RHETT-7 Date RHETT - 7 assessed: 10/28/24 Feeling nervous, anxious, or on edge: 0 = Not at all Not being able to stop or control worryin = Not at all Worrying too much about different things: 0 = Not at all Trouble relaxin = Not at all Being so restless that it is hard to sit still: 0 = Not at all Becoming easily annoyed or irritable: 0 = Not at all Feeling afraid as if something awful might happen: 0 = Not at all Total RHETT-7 score (0-4 normal; 5-9 mild; 10-14 moderate; 15-21 severe): 0 Source: Developed by Drs. Gold Lundberg, Ilene Dooley, Bashir Nelson and colleagues, with an educational lourdes from [employer]. RHETT-7 Assessment Billing RHETT-7 Assessment Tool: RHETT-7 Assessment 69547 Physical exam (Primary Care) Vital Signs: Last Vital Signs Pulse 86 10/28/24 15:10 BP 112/76 10/28/24 15:10 Pulse Ox 98 10/28/24 15:10 Oxygen Delivery Method Room Air 10/28/24 15:10 BMI result Body Mass Index 29.9 Tobacco/Smoking Status: Tobacco use Status Tobacco use date assessed 10/28/24 10/28/24 15:12 Patient Tobacco Use Status Former Tobacco user 10/28/24 15:12 Tobacco use type Cigarette 10/28/24 15:12 e-Cigarette/Vaping Use Never Used 10/28/24 15:12 PHQ-9: PHQ-9 Score PHQ-9: Total score 0 10/28/24 15:12 Depression Screening Interpretation: Negative Thrive Assessment: Date of Thrive Assessment Date Thrive assessed 10/28/24 10/28/24 15:12 Currently or been in a relationship where the following occur: No concerns reported Coding Level of Care Code Est Pt Prev Care 40-64y(57834) Diagnoses Adult wellness visit Z00.00 Additional Codes RHETT-7 Assessment Billing - RHETT-7 Assessment Tool: RHETT-7 Assessment 92067 ([id number]) PHQ-9 - 69215 - PHQ-9 Billing: Yes ([id number]) Assessment & Plan Assessment & Plan (1) Adult wellness visit: Code(s): Z00.00 - Encounter for general adult medical examination without abnormal findings Category: Medical Plan - The patient is a 44-year-old male presenting for a physical examination and routine follow-up. - He reports skin irritation due to dryness, which is improving with the use of a humidifier; he has been advised on moisturizing techniques. - He acknowledges being slightly overweight, expressing efforts to rectify this through dietary changes and better coordination with family for healthier food choices. - No medications are being taken currently, and there are no active medical complaints. - Previous laboratory results from last year were reviewed and were normal. Health Maintenance - Completion of influenza vaccination in July, as confirmed in records. - Completed COVID-19 vaccination series. - Discussed weight management and dietary changes, emphasizing the reduction of carbohydrate-rich and high-caloric intake. - Advice on using olive oil for skin moisturizing after showers.
== END 2024-10-28 15:28 | disposition home or self-care (01) ==
PROVIDERS: PCP Internal Medicine; Visit Provider Internal Medicine
DX: Z00.00 Encounter for general adult medical examination without abnormal findings (principal)

== ENCOUNTER → 2024-10-28 15:07 | Outpatient (BNVA) | payer OTHER, SELFPAY | PROVIDERS: PCP Internal Medicine; Visit Provider Internal Medicine | DX: Z00.00 Encounter for general adult medical examination without abnormal findings (principal) | CPT/HCPCS: 96127 ==